=== PATIENT | female | born 1950 | race Caucasian/White ===

== ENCOUNTER → 2016-04-28 | Outpatient (CLI) | payer MEDICARE ==
[2016-04-28 08:11] LABS: ASPARTATE AMINO TRANSFERASE 22 U/L (15-37); BLOOD UREA NITROGEN 19 mg/dL (7-18)
== END | disposition home or self-care (01) ==
LOC: LAB 06:52
PROVIDERS: ATTEND Internal Medicine
DX: Z20.5 Contact with and (suspected) exposure to viral hepatitis (principal); Z20.1 Contact with and (suspected) exposure to tuberculosis; Z13.1 Encounter for screening for diabetes mellitus; R14.0 Abdominal distension (gaseous); E22.1 Hyperprolactinemia
CPT/HCPCS: 36415; 80053; 80061; 84443; 86304; 86480; 86803